=== PATIENT | male | born 1985 | race Caucasian/White ===

== ENCOUNTER 2018-08-01 21:30 | Emergency (ER) | payer SELFPAY ==
[~2018-08-01] VITALS: Ht 167.6 cm; Wt 66.0 kg
[2018-08-01] MEDS ORDERED: SODIUM CHLORIDE 0.9% 1,000 ML IV ONE (22:26)
[2018-08-01 23:11] LABS: BASOPHILS % 0.3 % (0.0-2.0); EOSINOPHILS % 0.3 % (0.0-5.0); HEMATOCRIT. 43.1 % (42.0-52.0); HEMOGLOBIN. 14.6 g/dL (14.0-18.0); LYMPHOCYTES % 24.7 % (20.0-50.0); MEAN CORPUSCULAR VOLUME 88.3 fL (80.0-94.0); MEAN PLATELET VOLUME 8.1 fl (7.4-10.4); MONOCYTES % 2.5 % (2.0-8.0); NEUTROPHILS % 72.2 % (40.0-76.0); PLATELET 340 x1000/uL (130-400); RED BLOOD CELL COUNT 4.88 mill/uL (4.7-6.1); RED CELL DISTRIBUTION WIDTH 13.7 % (11.6-14.6)
[2018-08-01] MEDS ORDERED: LORAZEPAM 2MG/ML CPJ IM ONE (23:15)
[2018-08-01] MEDS ORDERED: HALOPERIDOL LACTATE 5MG/ML VIAL IM ONE (23:15)
[2018-08-01 23:17] LABS: CHLORIDE 108 mEq/L (98-107)
[2018-08-01 23:18] LABS: PROTHROMBIN TIME 9.8 sec (9.1-11.1)
[2018-08-01 23:21] LABS: ETHANOL BLOOD 295 mg/dL
[2018-08-01] MEDS ORDERED: LORAZEPAM 2MG/ML CPJ ONE (23:23)
[2018-08-02 05:50] VITALS: BP 114/62
== END 2018-08-02 05:50 | disposition home or self-care (01) ==
LOC: ER 21:51
DX: F10.229 Alcohol dependence with intoxication, unspecified (principal); S00.01XA Abrasion of scalp, initial encounter; I45.10 Unspecified right bundle-branch block; Y90.8 Blood alcohol level of 240 mg/100 ml or more; Z78.1 Physical restraint status; W22.8XXA Striking against or struck by other objects, initial encounter; Y93.89 Activity, other specified; Y92.89 Other specified places as the place of occurrence of the external cause
CPT/HCPCS: 36415; 70450; 80053; 80307; 80329; 82962; 85025; 85610; 93005; 96372; 99284; G0482; J2060; J7030